=== PATIENT | male | born 1955 | race Caucasian/White ===

== ENCOUNTER → 2020-09-03 | Day surgery (SDC) | payer OTHER ==
[~2020-09-03] MED LIST: AMOXICILLIN500 MG PO; ASPIRIN EC81 MG PO; BYSTOLIC10 MG PO; CRESTOR40 MG PO; HCTZ25 MG PO; IPRAT-ALBUT 0.5-3 ML INH; NORCO 5-325 TA1 EACH PO; OMEPRAZOLE40 MG PO; ONDANSETRON HCL4 MG PO; SINGULAIR10 MG PO; SYNTHROID88 MCG PO; VENTOLIN HFA IN18 GM INH; ZYRTEC10 M3 PO
[2020-09-03 11:31] LABS: HCT 45.8 % (42.0-52.0); HGB 15.8 g/dl (13.2-18.0); MCHC 34.5 g/dL (32.0-36.0); MPV 11.8 fL (6.0-9.5); RBC 5.09 M/uL (4.70-6.00); RDW 12.2 % (11.5-14.0); WBC 7.5 K/uL (4.0-10.5)
[2020-09-03 11:50] LABS: BILIRUBIN - TOTAL 0.5 mg/dL (0.2-1.0); BUN/CREAT RATIO (CALC) 12.2 RATIO; CREATININE 0.74 mg/dL (0.67-1.17); GLOBULIN (CALCULATION) 3.3 g/dL; POTASSIUM 3.6 mmol/L (3.5-5.1); TOTAL PROTEIN 7.3 g/dL (6.4-8.2)
== END | disposition home or self-care (01) ==
LOC: FAS 10:02
PROVIDERS: Surgery
DX: K80.10 Calculus of gallbladder with chronic cholecystitis without obstruction (principal); K76.0 Fatty (change of) liver, not elsewhere classified; E03.9 Hypothyroidism, unspecified; K21.9 Gastro-esophageal reflux disease without esophagitis; I10 Essential (primary) hypertension; E78.5 Hyperlipidemia, unspecified; Z88.0 Allergy status to penicillin
CPT/HCPCS: 36415; 74300; 80053; C1758; J1100; J1885; J2250; J2405; J2710; J3010; J7120; Q9967

== ENCOUNTER 2021-04-17 21:46 | Emergency (ER) | payer OTHER ==
[2021-04-17] MEDS ORDERED: ROBAXIN500 MG PO (23:25)
[2021-04-17] MEDS ORDERED: NAPROXEN500 MG PO (23:25)
[2021-04-17] MEDS ORDERED: MEDROL 4MG DOSEP4 MG PO (23:25)
== END 2021-04-17 23:57 | disposition home or self-care (01) ==
LOC: FER 21:46
DX: M54.42 Lumbago with sciatica, left side (principal); M54.41 Lumbago with sciatica, right side
CPT/HCPCS: 72100; 96372; J1100; J1885